=== PATIENT | male | born 1995 | race Hispanic/Latino ===

== ENCOUNTER → 2019-06-15 | Day surgery (SDC) | payer BC ==
[~2019-06-15] MED LIST: CEFAZOLIN SOD 1 GM VIAL ONE; CEFAZOLIN SOD 1 GM/NS 50ML 50 ML IV ONE; DEXAMETHASONE SOD PHOS INJ 4 MG/ML VIAL ONE; EPINEPHRINE 1 MG/ML 30ML VIAL ONE; FENTANYL CITRATE/PF 100MCG/2 ML INJ ONE; GLYCOPYRROLATE INJ 1MG/ 5 ML SYR ONE; HYDROMORPHONE 2MG/ML 2 MG/ML ML ONE; KETAMINE HCL INJ 50 MG/ML 10 ML VIAL ONE; LIDOCAINE 2%/ EPINEPHRINE 20ML MDV ONE; LIDOCAINE HCL 2% LOCAL INJ 5 ML SDV VIAL INJ ONE; MIDAZOLAM HCL 2 MG/2 ML VIAL ONE; NEOSTIGMINE 5 MG/5ML SYR ONE; ONDANSETRON HCL INJ 2MG/ML 2ML 2 MG/ML VIAL ONE; PROPOFOL IV EMULSION 10 MG/ML 20 ML VIAL ONE; ROCURONIUM BROMIDE 10 MG/ML 5ML VIAL ONE; ROPIVACAINE 0.5% 5 MG/ML 30 ML SDV ONE
--- OUTSIDE RECORDS SUMMARY | 2019-06-15 08:17 | XMS REPORT ---
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 Allergies, Adverse Reactions, Alerts Allergy Name Allergy Type Status Severity Reaction(s) Onset Date Inactive Date Treating Clinician Comments No Known Allergies DA Active U 2016-08-07 00:00:00 Medications This patient has no known medications. Results Test Description Test Time Test Comments Text Results Atomic Results Result Comments MRI SHOULDER RIGHT W 2019-05-12 14:38:00 [place] [address] Patient Name: VISH ROLON MR #: [id number] : 1995 Age/Sex: 24/M Req #: [id number] Adm Physician: Ordered by: GISELL BANUELOS MD Report #: [id number] Location: DX Room/Bed: Procedure: [id number] MRI/MRI SHOULDER RIGHT W Exam Date: Exam Time: REPORT STATUS: Signed TECHNIQUE: Magnetic resonance imaging of the RIGHT SHOULDER was performed after intra-articular injected contrast. COMPARISON: None available. HISTORY: Anterior shoulder subluxation FINDINGS: MUSCLES AND TENDONS: Rotator Cuff: Tendons: Supraspinatus: Intact Infraspinatus: Intact Teres Minor: Intact Subscapularis: Intact Muscles: No focal muscle atrophy. Biceps Tendon: The long head of the biceps tendon is intact and within the intertubercular groove. GLENOHUMERAL JOINT: Glenoid Labrum: Nondisplaced tear of the anteroinferior labrum for example axial image 16 and 17. The periosteum appears intact. Articular Cartilage: No focal defect. AC JOINT AND ACROMION: No hypertrophic degenerative changes of the acromioclavicular joint. The acromion is unremarkable. BONE: Remote Hill Sachs impaction to the posterior lateral humeral head. No acute fracture. SOFT TISSUES: Otherwise, the soft tissues appear unremarkable. IMPRESSION: Sequela of remote shoulder dislocation with Hill Sachs impaction to the posterolateral humeral head and nondisplaced nondetached tear to the anteroinferior labrum. Signed by: Dr. Celine Harrison M.D. on 05/12/2019 2:40 PM Dictated By: CELINE HARRISON MD 1440 Transcribed By: ENOCH on 05/12/19 1440 COPY TO: GISELL BANUELOS MD ARTHROCENTESIS-MAJOR JOINT 2019-05-12 14:01:00 [place] [address] Patient Name: VISH ROLON MR #: [id number] : 1995 Age/Sex: 24/M Req #: [id number] Adm Physician: Ordered by: GISELL BANUELOS MD Report #: [id number] Location: DX Room/Bed: Procedure: [id number] IR/ARTHROCENTESIS-MAJOR JOINT Exam Date: 05/12/19 Exam Time: 1200 REPORT STATUS: Signed EXAM: INJECTION ARTHROGRAM SHOULDER, FLURO GUIDE NEEDLE PLCMNT/INJ, ARTHROCENTESIS-MAJOR JOINT DATE: 05/12/2019 11:50 AM INDICATION: Right shoulder pain, subluxation COMPARISON: None Physician performing procedure: Dr. Kaz Jiménez MD PROCEDURES PERFORMED: Fluoroscopically-guided right glenohumeral joint arthrogram with MRI to follow Fluoro time: 1.1 minutes Dose: 11.1 mGy Anesthesia: Local, 1% lidocaine Devices: 22 gauge BD Quincke needle PROCEDURE REPORT: After written and verbal consent were obtained, the patient was placed supine on the fluoroscopy table with the right arm in external rotation. Using fluoroscopic guidance, sterile technique and local anesthesia, a 22 gauge, 3.5 inch needle was inserted percutaneously into the right glenohumeral joint. Proper placement was confirmed by injecting Isovue 300 into the joint under fluoroscopy. Next, 10cc of a 1:100 mixture of Multihance with Isovue 300 and saline were then injected. Complications: None Blood loss: Minimal Samples: None Patient disposition: MRI in stable condition. IMPRESSION: Uncomplicated fluoroscopically-guided right glenohumeral arthrogram with MRI to follow. Contrast is within the joint. See MRI report for full findings. Signed by: Kaz Jiménez MD on 05/12/2019 2:02 PM Dictated By: KAZ JIMÉNEZ MD 1402 Transcribed By: Ameya WINTERS on 05/12/19 1402 COPY TO: GISELL BANUELOS MD FLURO GUIDE NEEDLE PLCMNT/INJ 2019-05-12 14:01:00 [place] [address] Patient Name: VISH ROLON MR #: [id number] : 1995 Age/Sex: 24/M Req #: [id number] Adm Physician: Ordered by: GISELL BANUELOS MD Report #: [id number] Location: DX Room/Bed: Procedure: [id number] IR/FLURO GUIDE NEEDLE PLCMNT/INJ Exam Date: 05/12/19 Exam Time: 1200 REPORT STATUS: Signed EXAM: INJECTION ARTHROGRAM SHOULDER, FLURO GUIDE NEEDLE PLCMNT/INJ, ARTHROCENTESIS-MAJOR JOINT DATE: 05/12/2019 11:50 AM INDICATION: Right shoulder pain, subluxation COMPARISON: None Physician performing procedure: Dr. Kaz Jiménez MD PROCEDURES PERFORMED: Fluoroscopically-guided right glenohumeral joint arthrogram with MRI to follow Fluoro time: 1.1 minutes Dose: 11.1 mGy Anesthesia: Local, 1% lidocaine Devices: 22 gauge BD Quincke needle PROCEDURE REPORT: After written and verbal consent were obtained, the patient was placed supine on the fluoroscopy table with the right arm in external rotation. Using fluoroscopic guidance, sterile technique and local anesthesia, a 22 gauge, 3.5 inch needle was inserted percutaneously into the right glenohumeral joint. Proper placement was confirmed by injecting Isovue 300 into the joint under fluoroscopy. Next, 10cc of a 1:100 mixture of Multihance with Isovue 300 and saline were then injected. Complications: None Blood loss: Minimal Samples: None Patient disposition: MRI in stable condition. IMPRESSION: Uncomplicated fluoroscopically-guided right glenohumeral arthrogram with MRI to follow. Contrast is within the joint. See MRI report for full findings. Signed by: Kaz Jiménez MD on 05/12/2019 2:02 PM Dictated By: KAZ JIMÉNEZ MD 01 Transcribed By: ENOCH on 05/12/191401 COPY TO: GISELL BANUELOS MD INJECTION ARTHROGRAM SHOULDER 2019-05-12 14:01:00 [place] [address] Patient Name: VISH ROLON MR #: [id number] : 1995 Age/Sex: 24/M Re #: [id number] [facility] Physician: Ordered by: GISELL BANUELOS MD Report #: [id number] Location: DX Room/Bed: Procedure: [id number] IR/INJECTION ARTHROGRAM SHOULDER Exam Date: 05/12/19 Exam Time: 1200 REPORT STATUS: Signed EXAM: INJECTION ARTHROGRAM SHOULDER, FLURO GUIDE NEEDLE PLCMNT/INJ, ARTHROCENTESIS-MAJOR JOINT DATE: 05/12/2019 11:50 AM INDICATION: Right shoulder pain, subluxation COMPARISON: None Physician performing procedure: Dr. Kaz Jiménez MD PROCEDURES PERFORMED: Fluoroscopically-guided right glenohumeral joint arthrogram with MRI to follow Fluoro time: 1.1 minutes Dose: 11.1 mGy Anesthesia: Local, 1% lidocaine Devices: 22 gauge BD Quincke needle PROCEDURE REPORT: After written and verbal consent were obtained, the patient was placed supine on the fluoroscopy table with the right arm in external rotation. Using fluoroscopic guidance, sterile technique and local anesthesia, a 22 gauge, 3.5 inch needle was inserted percutaneously into the right glenohumeral joint. Proper placement was confirmed by injecting Isovue 300 into the joint under fluoroscopy. Next, 10cc of a 1:100 mixture of Multihance with Isovue 300 and saline were then injected. Complications: None Blood loss: Minimal Samples: None Patient disposition: MRI in stable condition.
[2019-06-15 12:20] VITALS: BP 131/60
--- NOTE | 2019-06-15 12:44 | Operative Report ---
DATE OF PROCEDURE: 06/15/2019 SURGEON: Rogelio Abel MD COOK PRESSURE: Mushtaq High, certified PA. PREOPERATIVE DIAGNOSIS: Right shoulder anterior instability/subluxation. POSTOPERATIVE DIAGNOSIS: Right shoulder anterior instability/subluxation. PROCEDURE: Right shoulder arthroscopy with anterior labral repair, * added complexity secondary to BMI of 46. 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 He has failed conservative management and would like to proceed with surgical stabilization. The risks and benefits have been explained. The added challenges, the potential for perioperative complications due to his BMI of 46 was explained. He states he understands and wishes to proceed. PROCEDURE IN DETAIL: The patient was brought to the operating room and placed under general anesthetic. He received a regional block in the holding area. He received prophylactic antibiotics. He was positioned in the beach chair position on the shoulder table. Added time and personnel was necessary due to the patient's BMI of 46. His right upper extremity was ultimately prepped and draped in a sterile manner. A preoperative time-out was performed. A standard posterior arthroscopy portal was established. Landmarks were obscured, secondary to the patient's body habitus. The scope was ultimately placed into the shoulder joint. The shoulder was insufflated with sterile saline and systematically inspected. A switching stick was used to place an anterior portal in the rotator interval. The glenohumeral surfaces had some grade 1 changes of chondromalacia. There was an extensive anterior labral detachment extending from about 11 o'clock down to 5 o'clock. The biceps tendon was otherwise intact and without any fraying. The rotator cuff insertion looked well preserved. The humeral head was in generally good shape. There was some erosion in the posterior aspect. A mechanical shaver was introduced into the joint. The anterior and superior glenoid rim were decorticated. A crescent shaped suture passer was used to pace the FiberWire stitches through the labrum at approximately the 4 o'clock location, the 2 o'clock location, and the 11 o'clock location; a tertiary portal was established in the myotendinous junction of the rotator cuff; drill holes were placed at these locations. The sutures were then attached to bioabsorbable suture anchors. They were used to anchor the labrum down to the cancellous bone in these locations. Nice secure fixation was obtained. Each suture was cut short. Multiple intraoperative arthroscopic photographs were taken. The arthroscopic instruments were then removed. The portal incisions were closed with nylon stitches. A sterile bandage and an UltraSling were applied. The patient was carefully extubated and transported to the recovery room in stable condition. There was no blood loss and all needle and sponge counts were correct. Rogelio Abel MD DR/KEN /[id number]
== END | disposition home or self-care (01) ==
LOC: OR 08:15
PROVIDERS: ATTEND Specialist
DX: S43.011 Anterior subluxation of right humerus (principal); S43.431A Superior glenoid labrum lesion of right shoulder, initial encounter; M94.211 Chondromalacia, right shoulder; E66.01 Morbid (severe) obesity due to excess calories; W03.XXXA Other fall on same level due to collision with another person, initial encounter; Y93.61 Activity, american tackle football; Z68.42 Body mass index [BMI] 45.0-49.9, adult
CPT/HCPCS: 29807; C1713; J0690 ×2; J1100; J1170; J2001 ×2; J2250; J2405; J2704; J2795; J3010; J3490